=== PATIENT | male | born 1985 | race Caucasian/White ===

== ENCOUNTER 2022-06-29 17:00 | Outpatient (RCR) | payer BC, SELFPAY | END 2023-05-19 11:13 | disposition home or self-care (01) | PROVIDERS: PCP Family Medicine; Visit Provider Family Medicine | DX: M54.6 Pain in thoracic spine (principal); Z51.89 Encounter for other specified aftercare | CPT/HCPCS: 97110; 97140 ==

== ENCOUNTER 2024-04-18 07:49 | Outpatient (CLI) | payer OTHER, SELFPAY | END 2024-04-18 07:50 | disposition home or self-care (01) | LOC: INJ CL 07:53 | PROVIDERS: PCP Family Medicine; Visit Provider Family Medicine | DX: M54.16 Radiculopathy, lumbar region (principal); M51.36 Other intervertebral disc degeneration, lumbar region | CPT/HCPCS: 62323; J0702; Q9966 ==

== ENCOUNTER 2024-08-08 06:56 | Outpatient (CLI) | payer OTHER, SELFPAY | END 2024-08-08 06:57 | disposition home or self-care (01) | LOC: INJ CL 06:58 | PROVIDERS: Visit Provider Family Medicine | DX: M54.16 Radiculopathy, lumbar region (principal); M51.369 Other intervertebral disc degeneration, lumbar region without mention of lumbar back pain or lower extremity pain | CPT/HCPCS: 62323; J0702; Q9966 ==

== ENCOUNTER 2024-10-31 06:35 | Outpatient (CLI) | payer OTHER, SELFPAY | END 2024-10-31 06:36 | disposition home or self-care (01) | LOC: INJ CL 06:36 | PROVIDERS: Visit Provider Family Medicine | DX: M54.16 Radiculopathy, lumbar region (principal); M51.26 Other intervertebral disc displacement, lumbar region | CPT/HCPCS: 64483; J1100; Q9966 ==

== ENCOUNTER 2025-01-30 13:43 | Outpatient (CLI) | payer BC, SELFPAY | END 2025-01-30 13:44 | disposition home or self-care (01) | LOC: INJ CL 13:44 | PROVIDERS: Visit Provider Family Medicine | DX: M54.16 Radiculopathy, lumbar region (principal); M51.26 Other intervertebral disc displacement, lumbar region | CPT/HCPCS: 64483; J1100; Q9966 ==